=== PATIENT | male | born 1965 | race Caucasian/White ===

== ENCOUNTER → 2018-02-26 11:51 | Outpatient (CLI) | payer OTHER, MEDICAID, SELFPAY ==
[2018-02-26 12:25] LABS: Hemoglobin A1C% w Est Avg Glu 7.9 % (4.0-6.0)
[2018-02-26 12:34] LABS: Alanine Aminotransferase 34 IU/L (21-72); Albumin 4.1 g/dL (3.5-5.0); Albumin Globulin Ratio 1.4 (1.0-2.8); Alkaline Phosphatase 78 U/L (38-126); Aspartate Aminotransferase 19 IU/L (17-59); Bilirubin Total 0.4 mg/dL (0.2-1.3); Blood Urea Nitrogen 27 mg/dL (9-20); Calcium 10.2 mg/dL (8.4-10.2); Carbon Dioxide 18 mmol/L (22-32); Chloride 110 mmol/L (98-107); Cholesterol 176 mg/dL (140-199); Estimated Glomerular Filt Rate > 60.0 mL/min (>60); Glucose 194 mg/dL (70-100); HDL Cholesterol 29 mg/dL (40-60); HEMOLYSIS 17 (0-50); Potassium 4.5 mmol/L (3.4-5.1); Sodium 143 mmol/L (137-145); Total Protein 7.1 g/dL (6.3-8.2)
[2018-02-26 12:44] LABS: Triglycerides 690 mg/dL (35-150)
[2018-02-26 17:39] LABS: Creatinine Urine Random 119.8 mg/dL
[2018-02-26 18:03] LABS: Microalbumi Creatinin Ratio Ur 171.9 ug/mg CR (<30); Microalbumin Urine Random 20.6 mg/dL (0-1.6)
== END ==
PROVIDERS: PCP Physician Assistant; Visit Provider Physician Assistant
DX: E11.65 Type 2 diabetes mellitus with hyperglycemia (principal); E78.5 Hyperlipidemia, unspecified
CPT/HCPCS: 36415; 80053; 80061; 82043; 82570; 83036

== ENCOUNTER → 2018-03-12 11:04 | Outpatient (CLI) | payer OTHER, MEDICAID, SELFPAY ==
--- NOTE | 2018-03-12 11:13 | DI.CT.S_ITS ---
PROCEDURE: CT CHEST WO CON INDICATIONS: 6 month follow up on abnormal CT chest TECHNIQUE: Noncontrast 5 mm thick sections acquired from the pulmonary apices to the posterior costophrenic angles. 7 mm thick coronal and sagittal MIP reformats were then acquired. For radiation dose reduction, the following was used: automated exposure control, adjustment of mA and/or kV according to patient size. COMPARISON: [facility], CT, THORAX WITHOUT CONTRAST, 04/24/2017, 11:48. FINDINGS: Image quality: Excellent. Lungs and pleura: Diffuse, bilateral lung groundglass opacities with ill-defined upper lobe nodules are not significantly changed compared to 04/24/2017. No pleural effusions or pneumothorax. Central and peripheral airways are patent and normal in caliber. Mediastinum: Heart size is normal. No pericardial effusion. No mediastinal adenopathy by size criteria. Thoracic aorta and central pulmonary arteries are normal in size. Esophagus is normal in caliber. No hiatal hernia. Bones and chest wall: No suspicious bony lesions. No vertebral body compression fractures. Spine degenerative disc disease and facet arthropathy. No axillary or supraclavicular adenopathy by size criteria. Thyroid gland is within normal limits. Abdomen: A small hypoattenuating lesions are noted in the visualized spleen which are not significantly changed in appearance where visualized compared to the prior examination. Visualized upper abdominal solid organs and bowel loops otherwise appear normal in the absence of contrast. IMPRESSION: Stable examination compared to 04/24/17. Diffuse, bilateral small groundglass opacities and ill-defined upper lobe nodules demonstrate no significant change compared to prior examination. Differential diagnosis includes causes of infective bronchiolitis, hypersensitivity pneumonitis connective tissue disorders including rheumatoid arthritis and in the appropriate clinical setting respiratory bronchiolitis-ILD. High-resolution CT scan could be performed for further characterization of the opacities if clinically indicated. Dictated by: Mariela Paz MD, PhD on 03/12/2018 at 14:28 Approved by: Mariela Paz MD, PhD on 03/12/2018 at 14:38
== END ==
PROVIDERS: PCP Physician Assistant; Visit Provider Physician Assistant
DX: R93.89 Abnormal findings on diagnostic imaging of other specified body structures (principal)
CPT/HCPCS: 71250

== ENCOUNTER → 2018-03-31 14:59 | Outpatient (CLI) | payer OTHER, MEDICAID, SELFPAY ==
--- NOTE | 2018-03-31 15:00 | DI.US.S_ITS ---
PROCEDURE: US ABDOMEN COMPLETE INDICATIONS: 30+pack/yr smoker - possible mass LUQ TECHNIQUE: Real-time scanning was performed of the abdominal and retroperitoneal organs, with image documentation. COMPARISON: None. FINDINGS: Liver: The liver demonstrates normal size. The liver demonstrates generalized increased echogenicity. This decreases ultrasound sensitivity for detection of hepatic masses. Gallbladder: No findings of gallstones or sludge are seen. The gallbladder wall is not thickened, measuring 3 mm or less. No specific pericholecystic fluid is seen. The sonographic Guzman sign is negative. Biliary ducts: Intrahepatic bile ducts are non-dilated. Extrahepatic bile duct caliber measures 6 mm. Normal is 6-7 mm or less in diameter, or 10 mm or less post-cholecystectomy. Pancreas: Visualized portions of the pancreas are sonographically normal. Spleen: Spleen is normal in size and homogeneous in echotexture. Kidneys: Kidneys are normal in size and echotexture. Right kidney measures 10.9 cm long; left kidney measures 11.2 cm long. No hydronephrosis. A 7 mm stone can be seen involving the superior pole of the left kidney. No solid masses. The renal cortex measures within normal limits for thickness. Aorta: Visualized aorta is normal in caliber at less than 3 cm. Iliacs: Proximal common iliac arteries are normal in caliber at less than 2.5 cm. IVC: Intrahepatic inferior vena cava is patent. Miscellaneous: No free abdominal fluid. IMPRESSION: No masses or other process abnormalities can be seen to explain patient's clinical left upper quadrant fullness. If there is strong clinical concern for left upper quadrant mass, then please consider a dedicated CT with IV and oral contrast for further evaluation. Note is made of a 7 mm nonobstructing left kidney stone. The liver demonstrates increased echogenicity. This finding is nonspecific, yet it is most commonly attributed to fatty infiltration. Dictated by: Gio Solitario M.D. on 03/31/2018 at 15:47 Approved by: Gio Solitario M.D. on 03/31/2018 at 15:51
== END ==
PROVIDERS: PCP Physician Assistant; Visit Provider Physician Assistant
DX: Z13.6 Encounter for screening for cardiovascular disorders (principal); F17.200 Nicotine dependence, unspecified, uncomplicated; E11.65 Type 2 diabetes mellitus with hyperglycemia; R19.32 Left upper quadrant abdominal rigidity
CPT/HCPCS: 76700

== ENCOUNTER → 2018-07-02 11:49 | Outpatient (CLI) | payer OTHER, MEDICAID, SELFPAY ==
[2018-07-02 12:53] LABS: Hemoglobin A1C% w Est Avg Glu 8.8 % (4.0-6.0)
[2018-07-02 13:19] LABS: Prostate Specific Antigen Scrn 1.45 ng/mL (0.1-4.0)
== END ==
PROVIDERS: PCP Physician Assistant; Visit Provider Physician Assistant
DX: Z12.5 Encounter for screening for malignant neoplasm of prostate (principal); E11.65 Type 2 diabetes mellitus with hyperglycemia
CPT/HCPCS: 36415; 83036; G0103

== ENCOUNTER → 2018-10-18 08:16 | Outpatient (CLI) | payer OTHER, MEDICAID, SELFPAY ==
[2018-10-18 09:16] LABS: Creatinine Urine Random 68.3 mg/dL
[2018-10-18 09:19] LABS: Microalbumi Creatinin Ratio Ur 241.5 ug/mg CR (<30); Microalbumin Urine Random 16.5 mg/dL (0-1.6)
[2018-10-18 09:28] LABS: Hemoglobin A1C% w Est Avg Glu 8.4 % (4.0-6.0)
[2018-10-18 09:42] LABS: Alanine Aminotransferase 33 IU/L (21-72); Albumin 4.1 g/dL (3.5-5.0); Albumin Globulin Ratio 1.2 (1.0-2.8); Alkaline Phosphatase 82 U/L (38-126); Aspartate Aminotransferase 22 IU/L (17-59); Bilirubin Total 0.4 mg/dL (0.2-1.3); Blood Urea Nitrogen 31 mg/dL (9-20); Calcium 10.1 mg/dL (8.4-10.2); Carbon Dioxide 23 mmol/L (22-32); Chloride 105 mmol/L (98-107); Cholesterol 181 mg/dL (140-199); Estimated Glomerular Filt Rate > 60.0 mL/min (>60); Globulin 3.3 g/dL (1.7-4.1); Glucose 188 mg/dL (70-100); HDL Cholesterol 24 mg/dL (40-60); HEMOLYSIS < 15 (0-50); Potassium 4.3 mmol/L (3.4-5.1); Sodium 138 mmol/L (137-145); Total Protein 7.4 g/dL (6.3-8.2); Triglycerides 495 mg/dL (35-150)
== END ==
PROVIDERS: PCP Physician Assistant; Visit Provider Physician Assistant
DX: E11.65 Type 2 diabetes mellitus with hyperglycemia (principal); E78.5 Hyperlipidemia, unspecified
CPT/HCPCS: 36415; 80053; 80061; 82043; 82570; 83036

== ENCOUNTER → 2019-02-15 10:16 | Outpatient (CLI) | payer OTHER, MEDICAID, SELFPAY ==
[2019-02-15 10:57] LABS: Hemoglobin A1C% w Est Avg Glu 9.1 % (4.0-6.0)
[2019-02-15 11:22] LABS: BUN Creatinine Ratio 26.7 (6-22); Blood Urea Nitrogen 32 mg/dL (9-20); Calcium 10.4 mg/dL (8.4-10.2); Carbon Dioxide 23 mmol/L (22-32); Chloride 105 mmol/L (98-107); Estimated Glomerular Filt Rate > 60.0 mL/min (>60); Glucose 214 mg/dL (70-100); HEMOLYSIS < 15 (0-50); Potassium 4.8 mmol/L (3.4-5.1); Sodium 138 mmol/L (137-145)
[2019-02-15 11:40] LABS: Creatinine Urine Random 82.6 mg/dL
[2019-02-15 11:44] LABS: Microalbumi Creatinin Ratio Ur 146.4 ug/mg CR (<30); Microalbumin Urine Random 12.1 mg/dL (0-1.6)
== END ==
PROVIDERS: PCP Physician Assistant; Visit Provider Physician Assistant
DX: E11.65 Type 2 diabetes mellitus with hyperglycemia (principal); E78.5 Hyperlipidemia, unspecified; F17.200 Nicotine dependence, unspecified, uncomplicated
CPT/HCPCS: 36415; 80048; 82043; 82570; 83036

== ENCOUNTER → 2019-11-23 10:35 | Outpatient (CLI) | payer OTHER, MEDICAID, SELFPAY ==
[2019-11-23 11:45] LABS: Add Manual Diff / Slide Review NO; Basophils Absolute Auto 100 /uL (0-100); Basophils Percent Auto 0.5 % (0-2); Eosinophils Absolute Auto 300 /uL (0-450); Eosinophils Percent Auto 2.8 % (2-4); Hematocrit 45.4 % (41-53); Hemoglobin 15.4 g/dL (13.5-17.5); Lymphocytes Absolute Auto 4800 /uL (1100-4500); Mean Corpuscular HGB Conc 33.9 % (30-36); Mean Corpuscular Hemoglobin 29.5 PG (26-34); Monocytes Absolute Auto 900 /uL (0-900); Monocytes Percent Auto 7.7 % (3-14); Neutrophils Absolute Auto 6100 /uL (1500-7000); Platelet Count 333 X10^3/uL (150-400); Red Blood Cell Count 5.22 X10^6/uL (4.5-5.9); White Blood Cell Count 12.3 X10^3/uL (4.5-11.0)
[2019-11-23 12:59] LABS: TSH w/ Reflex to FT4 1.84 uIU/mL (0.47-4.68)
[2019-11-23 14:02] LABS: Alanine Aminotransferase 28 IU/L (<50); Albumin 4.1 g/dL (3.5-5.0); Albumin Globulin Ratio 1.4 (1.0-2.8); Alkaline Phosphatase 104 U/L (38-126); Aspartate Aminotransferase 22 IU/L (17-59); BUN Creatinine Ratio 24.7 (6-22); Bilirubin Total 0.6 mg/dL (0.2-1.3); Blood Urea Nitrogen 24 mg/dL (9-20); Calcium 10.5 mg/dL (8.4-10.2); Carbon Dioxide 20 mmol/L (22-32); Chloride 105 mmol/L (98-107); Cholesterol 213 mg/dL (140-199); Estimated Glomerular Filt Rate > 60.0 mL/min (>60); Glucose 353 mg/dL (70-100); HDL Cholesterol 28 mg/dL (40-60); HEMOLYSIS < 15 (0-50); Potassium 4.8 mmol/L (3.4-5.1); Sodium 135 mmol/L (137-145); Total Protein 7.1 g/dL (6.3-8.2)
[2019-11-23 14:25] LABS: Triglycerides 678 mg/dL (35-150)
[2019-11-23 16:30] LABS: Creatinine Urine Random 102.8 mg/dL
[2019-11-23 16:37] LABS: Microalbumi Creatinin Ratio Ur 125.4 ug/mg CR (<30); Microalbumin Urine Random 12.9 mg/dL (0-1.6)
== END ==
PROVIDERS: PCP Registered Nurse Diabetes Educator; Referring Provider Registered Nurse Diabetes Educator; Visit Provider Registered Nurse Diabetes Educator
DX: E11.65 Type 2 diabetes mellitus with hyperglycemia (principal)
CPT/HCPCS: 36415; 80053; 80061; 82043; 82570; 83036; 84443; 85025

== ENCOUNTER → 2020-04-10 10:26 | Outpatient (CLI) | payer OTHER, MEDICAID, SELFPAY ==
[2020-04-10 11:17] LABS: Add Manual Diff / Slide Review NO; Basophils Absolute Auto 100 /uL (0-100); Basophils Percent Auto 0.7 % (0-2); Eosinophils Absolute Auto 300 /uL (0-450); Eosinophils Percent Auto 2.2 % (2-4); Hematocrit 47.5 % (41-53); Hemoglobin 15.9 g/dL (13.5-17.5); Lymphocytes Absolute Auto 4600 /uL (1100-4500); Lymphocytes Percent Auto 38.2 % (25-40); Mean Corpuscular HGB Conc 33.4 % (30-36); Mean Corpuscular Hemoglobin 28.7 PG (26-34); Mean Corpuscular Volume 86.1 fL (80-100); Monocytes Absolute Auto 1000 /uL (0-900); Monocytes Percent Auto 8.3 % (3-14); Neutrophils Absolute Auto 6100 /uL (1500-7000); Neutrophils Percent Auto 50.6 % (50-75); Platelet Count 311 X10^3/uL (150-400); Red Blood Cell Count 5.52 X10^6/uL (4.5-5.9); Red Cell Distribution Width 13.1 % (11.6-14.8); White Blood Cell Count 12.1 X10^3/uL (4.5-11.0)
[2020-04-10 11:25] LABS: Hemoglobin A1C% w Est Avg Glu 12.6 % (4.0-6.0)
[2020-04-10 11:45] LABS: Creatinine Urine Random 94.1 mg/dL
[2020-04-10 11:47] LABS: Alanine Aminotransferase 25 IU/L (<50); Albumin Globulin Ratio 1.2 (1.0-2.8); Alkaline Phosphatase 98 U/L (38-126); Aspartate Aminotransferase 17 IU/L (17-59); BUN Creatinine Ratio 30.8 (6-22); Bilirubin Total 0.7 mg/dL (0.2-1.3); Blood Urea Nitrogen 32 mg/dL (9-20); Calcium 10.2 mg/dL (8.4-10.2); Carbon Dioxide 20 mmol/L (22-32); Chloride 106 mmol/L (98-107); Cholesterol 224 mg/dL (140-199); Estimated Glomerular Filt Rate > 60.0 mL/min (>60); Globulin 3.3 g/dL (1.7-4.1); Glucose 343 mg/dL (70-100); HDL Cholesterol 30 mg/dL (40-60); HEMOLYSIS < 15 (0-50); Potassium 4.4 mmol/L (3.4-5.1); Sodium 135 mmol/L (137-145); Total Protein 7.3 g/dL (6.3-8.2)
[2020-04-10 12:37] LABS: Triglycerides 589 mg/dL (35-150)
[2020-04-10 12:50] LABS: Microalbumi Creatinin Ratio Ur 456.9 ug/mg CR (<30)
== END ==
PROVIDERS: PCP Registered Nurse Diabetes Educator; Referring Provider Registered Nurse Diabetes Educator; Visit Provider Registered Nurse Diabetes Educator
DX: E11.65 Type 2 diabetes mellitus with hyperglycemia (principal); E78.5 Hyperlipidemia, unspecified
CPT/HCPCS: 36415; 80053; 80061; 82043; 82570; 83036; 85025

== ENCOUNTER → 2020-05-21 12:52 | Oncology outpatient (ONC) | payer OTHER, MEDICAID, SELFPAY ==
[2020-05-21 12:07] VITALS: BP 115/70; PULSE 104; RESP 16; TEMP 31.2; O2SAT 96
--- NOTE | 2020-05-21 12:23 | ONC.CONS ---
History of Present Illness - Data of Consult Patient: new to practice Consult date: 05/21/20 Requesting Physician: PAULINE Cash Primary Care Provider: PAULINE Cash - Consult Narrative Reason for consult: Leukocytosis Narrative: David Sainz is a 55 year old male with medical problems most notable for type 2 diabetes. Clinically, he said he is worn out more easily, and sleep a lot. He has good appetite. He lost from about 400 lbs in 2016 to 196 lbs. He has asthma, and does not really affect him. He denies any chest pain. No nausea or vomiting. No abdominal pain. No tingling or numbing of hands and feet. He has not been aware of increased WBC until recently. But upon reviewing of the available medical records in [facility], patient apparently was found to have an slightly elevated total white blood cell count on 06/04/2000 with WBC 11.9. After that, monitoring of the white blood cell count has shown gradually mildly elevated total white blood cell count but rather stable. On 04/10/2020, WBC 12.1, hemoglobin 15.9, hematocrit 47.5, platelets 311. Absolute lymphocyte count 4600. CC: Radha Hernandez MD Home Medications and Allergies Home Medications Medication Instructions Recorded Confirmed Type Pen [employer] #100 each 03/26/18 04/18/20 Rx Syringes: 1cc Insulin Syringes #180 each 09/15/18 04/18/20 Rx with [employer] fenofibrate 160 mg tablet 160 mg PO QDAY #60 tab 10/20/18 04/18/20 Rx Unifine Pentips Plus Misc. #200 each 08/15/19 04/18/20 Rx [Lancets] #100 each 11/25/19 04/18/20 Rx [Test Strips] #100 each 11/25/19 04/18/20 Rx bupropion HCl 150 mg tablet,12 hr 150 mg PO DAILY #60 ea 04/18/20 04/18/20 Rx sustained-release fluticasone propionate 50 2 spray INTRANASAL DAILY #9.9 ml 04/18/20 04/18/20 Rx mcg/actuation nasal spray,suspension metformin 500 mg tablet,extended 1,000 mg PO PM #120 tab 04/18/20 04/18/20 Rx release 24 hr exenatide microspheres 2 mg/0.65 2 mg SUBCUT QWEEK #4 ea 05/11/20 05/11/20 Rx mL subcutaneous pen injector Allergies Allergy/AdvReac Type Severity Reaction Status Date / Time No Known Drug Allergies Allergy Verified 04/18/20 13:02 Medical History - Medical, Surgical, Family History Medical History: Medical History (Last Updated 04/20/20 @ 15:28 by PAULINE Cash) Asthma COPD (chronic obstructive pulmonary disease) Diabetes mellitus type 2, insulin dependent Onset Date: 2010 History of incision and drainage Onset Date: 07/25/15 Hyperlipidemia Onset Date: 07/19/12 Hypertension Leukocytosis Poor compliance with medication Recurrent boils Renal insufficiency Onset Date: 04/04/14 RLS (restless legs syndrome) Family History: Family History (Last Updated 05/21/20 @ 12:35 by Radha Hernandez MD) Father Respiratory failure Smoker Mother No problems noted. Brother Colon cancer Sister Type 1 diabetes Down syndrome Sister No problems noted. Sister No problems noted. - Social History Smoking Status: Current every day smoker (1/2 - 1 pack per day. Gave patient a smoking cessation handout.) Substance Use Type: marijuana (once in a while) Alcohol Intake: former (stopped 1990, use to drinkly badly.) Review of Systems - Patient Self-Reported Symptoms SR eye issues: Vision changes SR respiratory issues: Shortness of breath, Mucous SR Neuro issues: Headache All systems PM: reviewed and no additional remarkable complaints except as stated Exam Vital signs: Vital Signs Temp Pulse Resp BP Pulse Ox 05/21/20 12:07 88.2 F L 104 H 16 115/70 96 Intake and Output 05/20/20 05/21/20 05/21/20 23:59 07:59 15:59 Other: Weight 2 kg Patient Weight 05/21/20 23:59 Weight 2 kg Narrative: ECOG 1 Vitals above reviewed Constitutional: well developed, and well nourished, and well groomed, not in any acute respiratory distress, pleasant and cooperative. HEENT: NCAT, EOMI, PERRLA. Anicteric sclera. Neck: Supple and symmetrical, no palpable masses. No palpable thyromegaly. Respiratory: No use of accessory muscles. CTAB, no wheezes. Cardiovascular: RRR, S1 and S2 normal, no M/G/R. No edema of lower extremities. Abdomen: Soft, NTND, no palpable masses. No palpable hepatosplenomegaly. No hernia. Lymphatic: no palpable palpable lymph nodes in the neck, or axillae Musculoskeletal: normal gait and station Skin: No rashes, lesions, or ulcers. No induration, or subcutaneous nodules. Neurological: AOx3.CN II-XII grossly intact. No focal motor or sensory deficit. Psychiatric: Normal mood and affect. Results - Labs Pending Assessment and Plan (1) Lymphocytosis 55-year-old gentleman with medical comorbidities notable for diabetes was referred to our clinic for evaluation of mildly persistent leukocytosis and absolute lymphocytosis. Clinically patient does not have any fever, chills or night sweats. On my physical examination, I did not appreciate any lymphadenopathy or hepato splenomegaly. The lymphocytosis has been present since as early as May 2000. 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 Given that the lymphocytosis is less than 5000, it is unlikely we should designated his disease as chronic lymphocytic leukemia. I explained to the patient that I will obtain blood samples for flow cytometry and will have him come back in 4 weeks for follow-up of the results. Plan: CBC, CMP, Flowcytometry RTC in 4 weeks
[2020-05-21 13:09] LABS: Add Manual Diff / Slide Review NO; Basophils Absolute Auto 200 /uL (0-100); Basophils Percent Auto 1.2 % (0-2); Eosinophils Absolute Auto 200 /uL (0-450); Eosinophils Percent Auto 1.8 % (2-4); Hematocrit 49.9 % (41-53); Hemoglobin 16.6 g/dL (13.5-17.5); Lymphocytes Absolute Auto 4800 /uL (1100-4500); Lymphocytes Percent Auto 35.8 % (25-40); Mean Corpuscular HGB Conc 33.3 % (30-36); Mean Corpuscular Hemoglobin 28.5 PG (26-34); Mean Corpuscular Volume 85.5 fL (80-100); Monocytes Absolute Auto 1000 /uL (0-900); Monocytes Percent Auto 7.5 % (3-14); Neutrophils Absolute Auto 7200 /uL (1500-7000); Neutrophils Percent Auto 53.7 % (50-75); Platelet Count 319 X10^3/uL (150-400); Red Blood Cell Count 5.83 X10^6/uL (4.5-5.9); Red Cell Distribution Width 13.1 % (11.6-14.8); White Blood Cell Count 13.4 X10^3/uL (4.5-11.0)
[2020-05-21 13:27] LABS: Alanine Aminotransferase 31 IU/L (<50); Albumin 4.4 g/dL (3.5-5.0); Albumin Globulin Ratio 1.3 (1.0-2.8); Alkaline Phosphatase 104 U/L (38-126); Aspartate Aminotransferase 22 IU/L (17-59); Bilirubin Total 0.6 mg/dL (0.2-1.3); Blood Urea Nitrogen 31 mg/dL (9-20); Calcium 10.2 mg/dL (8.4-10.2); Carbon Dioxide 22 mmol/L (22-32); Chloride 105 mmol/L (98-107); Estimated Glomerular Filt Rate > 60.0 mL/min (>60); Globulin 3.4 g/dL (1.7-4.1); Glucose 312 mg/dL (70-100); HEMOLYSIS < 15 (0-50); Potassium 4.6 mmol/L (3.4-5.1); Sodium 135 mmol/L (137-145); Total Protein 7.8 g/dL (6.3-8.2)
== END ==
PROVIDERS: PCP Registered Nurse Diabetes Educator; Referring Provider Registered Nurse Diabetes Educator; Visit Provider Internal Medicine Hematology & Oncology
DX: D72.829 Elevated white blood cell count, unspecified (principal); E11.9 Type 2 diabetes mellitus without complications; I10 Essential (primary) hypertension; E78.5 Hyperlipidemia, unspecified; J44.9 Chronic obstructive pulmonary disease, unspecified; N28.9 Disorder of kidney and ureter, unspecified; G25.81 Restless legs syndrome; F17.210 Nicotine dependence, cigarettes, uncomplicated; Z79.4 Long term (current) use of insulin
CPT/HCPCS: 80053; 85025; 99204; 99214

== ENCOUNTER → 2022-06-30 11:10 | Outpatient (CLI) | payer OTHER, MEDICAID, SELFPAY ==
[2022-06-30 12:19] LABS: Hematocrit 45.7 % (41-53); Hemoglobin 15.4 g/dL (13.5-17.5); Mean Corpuscular HGB Conc 33.7 % (30-36); Platelet Count 310 X10^3/uL (150-400); Red Blood Cell Count 5.32 X10^6/uL (4.5-5.9); Red Cell Distribution Width 13.6 % (11.6-14.8); White Blood Cell Count 12.3 X10^3/uL (4.5-11.0)
[2022-06-30 12:51] LABS: Alanine Aminotransferase 27 IU/L (<50); Albumin 3.9 g/dL (3.5-5.0); Albumin Globulin Ratio 1.1 (1.0-2.8); Alkaline Phosphatase 114 U/L (38-126); Aspartate Aminotransferase 19 IU/L (17-59); BUN Creatinine Ratio 27.9 (6-22); Bilirubin Total 0.6 mg/dL (0.2-1.3); Blood Urea Nitrogen 29 mg/dL (9-20); Calcium 9.2 mg/dL (8.4-10.2); Carbon Dioxide 19 mmol/L (22-32); Chloride 104 mmol/L (98-107); Cholesterol 239 mg/dL (140-199); Estimated Glomerular Filt Rate > 60 mL/min (>60); Globulin 3.6 g/dL (1.7-4.1); Glucose 333 mg/dL (70-100); HDL Cholesterol 25 mg/dL (40-60); HEMOLYSIS < 15 (0-50); Potassium 4.3 mmol/L (3.4-5.1); Sodium 134 mmol/L (137-145); Total Protein 7.5 g/dL (6.3-8.2)
[2022-06-30 12:59] LABS: Triglycerides 909 mg/dL (35-150)
[2022-06-30 13:06] LABS: Hemoglobin A1C% w Est Avg Glu 12.5 % (4.0-6.0)
[2022-06-30 13:18] LABS: TSH w/ Reflex to FT4 1.82 uIU/mL (0.47-4.68)
[2022-07-02 16:15] LABS: Microalbumin Urine Random 75.1 mg/dL (0-1.6)
[2022-07-02 17:12] LABS: Creatinine Urine Random 79.4 mg/dL; Microalbumi Creatinin Ratio Ur 945.8 ug/mg CR (<30)
== END ==
PROVIDERS: PCP Registered Nurse Diabetes Educator; Referring Provider Registered Nurse Diabetes Educator; Visit Provider Registered Nurse Diabetes Educator
DX: E11.65 Type 2 diabetes mellitus with hyperglycemia (principal); E78.5 Hyperlipidemia, unspecified
CPT/HCPCS: 36415; 80053; 80061; 82043; 82570; 83036; 84443; 85027

== ENCOUNTER → 2022-07-29 14:57 | Outpatient (CLI) | payer OTHER, MEDICAID, SELFPAY ==
--- NOTE | 2022-07-29 14:58 | DI.US.S_ITS ---
PROCEDURE: US SOFT TISSUE HEAD AND NECK INDICATIONS: RIGHT NECK LUMP TECHNIQUE: Real-time scanning was performed of the neck region of interest, with image documentation. COMPARISON: None. FINDINGS: No mass, fluid collection or lymphadenopathy seen in the region of interest involving the palpable right neck mass. IMPRESSION: No sonographic abnormality involving the palpable abnormality of the right neck. If there is continued clinical concern for mass, consider CT or MRI for further assessment. Dictated by: Dionisio GAITAN Interpreted: Arden Stack MD on 07/29/2022 at 16:15 Transcribed by: AUDIE on 07/29/2022 at 16:16 Approved by: Arden Stack M.D. on 08/04/2022 at 10:41
--- NOTE | 2022-07-29 14:58 | DI.US.S_ITS ---
PROCEDURE: US EXTREMITY NONVASC UPPER LT INDICATIONS: LEFT ANTERIOR ELBOW LUMP TECHNIQUE: Real-time scanning was performed of the left cubital fossa , with image documentation. COMPARISON: None. FINDINGS: There is no soft tissue abnormality or mass visualized within the left cubital fossa in the area of interest. IMPRESSION: No sonographic abnormality in the area palpated by the patient. Dictated by: Pearl Mcbride M.D. on 07/29/2022 at 16:39 Approved by: Pearl Mcbride M.D. on 07/29/2022 at 16:42
== END ==
PROVIDERS: PCP Registered Nurse Diabetes Educator; Referring Provider Registered Nurse Diabetes Educator; Visit Provider Registered Nurse Diabetes Educator
DX: R22.32 Localized swelling, mass and lump, left upper limb (principal); R22.1 Localized swelling, mass and lump, neck
CPT/HCPCS: 76536; 76882

== ENCOUNTER → 2023-07-16 14:50 | Outpatient (CLI) | payer OTHER, MEDICAID, SELFPAY ==
[2023-07-16 15:36] LABS: Hematocrit 43.6 % (41-53); Hemoglobin 14.8 g/dL (13.5-17.5); Mean Corpuscular HGB Conc 33.9 % (30-36); Mean Corpuscular Hemoglobin 28.6 PG (26-34); Mean Corpuscular Volume 84.4 fL (80-100); Platelet Count 291 X10^3/uL (150-400); Red Blood Cell Count 5.16 X10^6/uL (4.5-5.9); Red Cell Distribution Width 13.5 % (11.6-14.8); White Blood Cell Count 13.4 X10^3/uL (4.5-11.0)
[2023-07-16 16:05] LABS: Neutrophils Absolute Manual 7370 /uL (3000-5900); Total Cells Counted 100
[2023-07-16 16:06] LABS: RBC Morphology Normal Morphology
[2023-07-16 16:23] LABS: Alanine Aminotransferase 24 IU/L (<50); Albumin 3.8 g/dL (3.5-5.0); Albumin Globulin Ratio 1.1 (1.0-2.8); Alkaline Phosphatase 98 U/L (38-126); Aspartate Aminotransferase 20 IU/L (17-59); BUN Creatinine Ratio 22.4 (6-22); Bilirubin Total 0.8 mg/dL (0.2-1.3); Blood Urea Nitrogen 24 mg/dL (9-20); Calcium 9.2 mg/dL (8.4-10.2); Carbon Dioxide 20 mmol/L (22-32); Chloride 107 mmol/L (98-107); Cholesterol 193 mg/dL (140-199); Estimated Glomerular Filt Rate > 60 mL/min (>60); Globulin 3.5 g/dL (1.7-4.1); Glucose 255 mg/dL (70-100); HDL Cholesterol 28 mg/dL (40-60); HEMOLYSIS < 15 (0-50); LDL Cholesterol Calculated 103 mg/dL (<100); Sodium 135 mmol/L (137-145); Total Protein 7.3 g/dL (6.3-8.2); Triglycerides 309 mg/dL (35-150)
[2023-07-16 16:32] LABS: Hemoglobin A1C% w Est Avg Glu 11.4 % (4.0-6.0)
[2023-07-16 16:42] LABS: Creatinine Urine Random 174.7 mg/dL
[2023-07-16 16:54] LABS: TSH w/ Reflex to FT4 1.57 uIU/mL (0.47-4.68)
[2023-07-16 21:07] LABS: Microalbumi Creatinin Ratio Ur 5781.3 ug/mg CR (<30)
== END ==
PROVIDERS: PCP Registered Nurse Diabetes Educator; Referring Provider Registered Nurse Diabetes Educator; Visit Provider Registered Nurse Diabetes Educator
DX: D72.820 Lymphocytosis (symptomatic) (principal); E11.65 Type 2 diabetes mellitus with hyperglycemia; D72.829 Elevated white blood cell count, unspecified; E78.5 Hyperlipidemia, unspecified
CPT/HCPCS: 36415; 80053; 80061; 82043; 82570; 83036; 84443; 85025

== ENCOUNTER → 2023-07-23 10:10 | Outpatient (CLI) | payer OTHER, MEDICAID, SELFPAY ==
--- NOTE | 2023-07-23 10:11 | DI.RAD.S_ITS ---
PROCEDURE: FL UPPER GI SMALL BOWEL INDICATIONS: Early satiety; vomiting suspect gastroparesis COMPARISON: None. FINDINGS: KUB: No suspicious abdominal calcifications. Visualized solid organ contours appear normal in size. No suspicious bony abnormalities. Somewhat prominent stool in the colon. (Patient reports bowel movement once every 7-10 days). Esophagus: Air-contrast views demonstrate a normal mucosal pattern. On single-contrast views, there is normal peristalsis. No fixed strictures, extrinsic mass effects, or diverticula. No hiatal hernias or elicited gastroesophageal reflux. Mild delay in transit of a calibrated barium tablet through the esophagus. Stomach: The gastric lumen is normally distensible, and has normal rugal fold thickness. No mucosal masses or ulcers. The pylorus and duodenal bulb have a normal morphology. Small bowel: There is delayed transit time of barium through the stomach. No contrast is seen entering at the proximal duodenum at the end of the active exam 10 minutes. At 30 minutes contrast is seen in the proximal small bowel. At 90 minutes contrast has reached the distal small bowel. At 2 hours contrast is similarly in the distal small bowel. This is consistent with slow transit through the small bowel. Duodenal and small bowel loops appear normal in caliber throughout. No strictures, intraluminal masses, or extrinsic mass effects identified. IMPRESSION: No esophageal dysmotility demonstrated. No gastroesophageal reflux. No hiatal hernia. Minimal delay of the barium tablet through the gastroesophageal junction. Delay of the passage of contrast into the duodenum. This suggest gastroparesis. Additionally, there is slow transit of contrast through the small bowel. Large volume of stool in the colon. Dictated by: Ace Pearson M.D. on 07/23/2023 at 16:37 Approved by: Ace Pearson M.D. on 07/23/2023 at 16:44
== END ==
LOC: RAD 10:11
PROVIDERS: PCP Registered Nurse Diabetes Educator; Referring Provider Physician Assistant; Visit Provider Physician Assistant
DX: E11.43 Type 2 diabetes mellitus with diabetic autonomic (poly)neuropathy (principal); K31.84 Gastroparesis
CPT/HCPCS: 74240; 74248

== ENCOUNTER 2023-08-08 09:35 | Emergency (ER) | payer OTHER, MEDICAID, SELFPAY ==
[2023-08-08] VITALS (11 sets, daily range): BP systolic 109–149; BP diastolic 68–84; PULSE 78–128; RESP 14–20; TEMP 36.7; O2SAT 95–99; BMI 27.2
[2023-08-08 10:03] LABS: Add Manual Diff / Slide Review NO; Basophils Absolute Auto 100 /uL (0-100); Basophils Percent Auto 1.2 % (0-2); Eosinophils Absolute Auto 200 /uL (0-450); Eosinophils Percent Auto 2.1 % (2-4); Hematocrit 45.6 % (41-53); Hemoglobin 15.5 g/dL (13.5-17.5); Lymphocytes Absolute Auto 4100 /uL (1100-4500); Mean Corpuscular Hemoglobin 28.9 PG (26-34); Mean Corpuscular Volume 84.9 fL (80-100); Monocytes Absolute Auto 900 /uL (0-900); Neutrophils Absolute Auto 6200 /uL (1500-7000); Neutrophils Percent Auto 53.7 % (50-75); Platelet Count 345 X10^3/uL (150-400); Red Blood Cell Count 5.37 X10^6/uL (4.5-5.9); Red Cell Distribution Width 13.4 % (11.6-14.8); White Blood Cell Count 11.6 X10^3/uL (4.5-11.0)
[2023-08-08 10:14] LABS: Alanine Aminotransferase 22 IU/L (<50); Albumin 3.9 g/dL (3.5-5.0); Albumin Globulin Ratio 1.1 (1.0-2.8); Alkaline Phosphatase 79 U/L (38-126); Aspartate Aminotransferase 22 IU/L (17-59); BUN Creatinine Ratio 17.6 (6-22); Blood Urea Nitrogen 21 mg/dL (9-20); Calcium 10.9 mg/dL (8.4-10.2); Carbon Dioxide 22 mmol/L (22-32); Chloride 103 mmol/L (98-107); Estimated Glomerular Filt Rate > 60 mL/min (>60); Globulin 3.4 g/dL (1.7-4.1); Glucose 214 mg/dL (70-100); HEMOLYSIS 16 (0-50); Lipase 55 U/L (23-300); Potassium 4.1 mmol/L (3.4-5.1); Sodium 134 mmol/L (137-145); Total Protein 7.3 g/dL (6.3-8.2)
--- NOTE | 2023-08-08 11:30 | ED.ABDPAIN ---
HPI - Abdominal Pain General Chief Complaint: Abdominal Pain Stated Complaint: sent by PCP/ sick last 6 weeks Time Seen by Provider: 08/08/23 10:32 Source: patient Mode of arrival: Ambulatory History of Present Illness HPI narrative: 58-year-old male with periumbilical abdominal pain for weeks. No acute symptoms of vomiting or fevers, his abdomen is nontender. Reportedly had improved symptoms in the past with treatment to suppress stomach acid secretion. No prior abdominal surgeries. He says he had an upper GI endoscopy recently and has been referred to [facility], he does not know what the results of his endoscopy were nor can I locate a report of a recent endoscopy in the records here. He says that his primary care office told him to come to the emergency department because of his ongoing symptoms. He is able to eat and drink normally. He was started on semaglutide about 2 weeks ago, his symptoms preceded this. Related Data Previous Rx's Medication Instructions Recorded [Lancets] #100 ea 07/08/22 [Test Strips] #100 ea 07/08/22 metformin 500 mg tablet,extended 1,000 mg (2 x 500 mg) PO BID #360 07/08/22 release 24 hr tabs Pen [place] #100 ea 07/16/23 insulin glargine 100 unit/mL (3 22 unit (0.22 mL) SUBCUT QPM #15 mL 07/16/23 mL) subcutaneous pen (Lantus Solostar U-100 Insulin) semaglutide 0.25 mg or 0.5 mg (2 0.25 mg (0.368 mL) SUBCUT QWEEK #3 07/16/23 mg/3 mL) subcutaneous pen injector mL omeprazole 20 mg capsule,delayed 20 mg PO DAILY #30 caps 08/08/23 release Allergies Allergy/AdvReac Type Severity Reaction Status Date / Time insulin glargine AdvReac Mild Muscle Pain Verified 08/08/23 09:43 [From Yaneth Sutherland U-100 Insulin] Patient History Medical History Asthma COPD (chronic obstructive pulmonary disease) Diabetes mellitus type 2, insulin dependent (2010) Dyslipidemia History of incision and drainage (07/25/15) Hyperlipidemia (07/19/12) Hypertension Leukocytosis Poor compliance with medication Recurrent boils Renal insufficiency (04/04/14) RLS (restless legs syndrome) Family History Father Respiratory failure Smoker Mother No problems noted. Brother Colon cancer Sister Type 1 diabetes Down syndrome Sister No problems noted. Sister No problems noted. Social History Smoking Status: Current every day smoker Tobacco: How many years used: 24 quit status: not considering quitting second hand exposure: Yes (everybody in my family smokes. ) alcohol intake: former (stopped 1990, use to drinkly badly. ) substance use type: marijuana (once in a while) Smoking Status: Current every day smoker tobacco type: cigarettes alcohol intake frequency: 0-2 drinks per day Substance Use Type: marijuana Exam Narrative Exam Narrative: Alert, no acute distress HEENT: Normocephalic, atraumaitic moist mucus membranes Neck: Supple no midline tenderness Lungs: Clear to ascultaion, no respiratory distress Heart: Regular rhythm and rate no murmur Abdomen: Normal bowel sounds, soft and nontender Extremeties: Full range of motion no deformity Neuro: Alert and oriented, normal speech moves x4 He was noted to be tachycardic on arrival, heart rate was normal on my exam Initial Vital Signs Initial Vital Signs: Vital Signs Temperature 98.1 F 08/08/23 09:38 Pulse Rate 128 H 08/08/23 09:38 Respiratory Rate 14 08/08/23 09:38 Blood Pressure 149/68 H 08/08/23 09:38 Pulse Oximetry 99 08/08/23 09:38 Oxygen Delivery Method Room Air 08/08/23 09:38 Course Orders Ordered: ED Orders 08/08/23 09:51 Complete Blood Count AUTO DIFF Stat Comprehensive Metabolic Panel Stat Lipase Stat 08/08/23 10:05 EKG-12 Lead Stat 08/08/23 12:31 Urine Microscopic Stat Ondansetron HCl (Ondansetron 4 Mg Odt) 4 mg PO NOW PRN PRN Reason: Nausea And Vomiting Ondansetron HCl (Ondansetron 4 Mg/2 Ml Inj) 4 mg IV NOW PRN PRN Reason: Nausea And Vomiting Vital Signs Vital signs: Vital Signs - 8 hr 08/08/23 09:38 08/08/23 09:46 08/08/23 09:47 Temperature 98.1 F Pulse Rate 128 H 114 H 114 H Respiratory Rate 14 20 18 Blood Pressure 149/68 H Pulse Oximetry 99 97 Oxygen Delivery Method Room Air Room Air 08/08/23 09:47 08/08/23 10:00 08/08/23 10:00 Temperature Pulse Rate 104 H Respiratory Rate 20 Blood Pressure 123/84 116/83 Pulse Oximetry 97 Oxygen Delivery Method 08/08/23 10:30 08/08/23 10:30 08/08/23 11:00 Temperature Pulse Rate 96 H Respiratory Rate 19 Blood Pressure 117/76 111/80 Pulse Oximetry 96 Oxygen Delivery Method 08/08/23 11:00 08/08/23 11:30 08/08/23 11:30 Temperature Pulse Rate 95 H 91 H Respiratory Rate 18 Blood Pressure 115/72 Pulse Oximetry 95 95 Oxygen Delivery Method 08/08/23 12:00 08/08/23 12:00 Temperature Pulse Rate 90 Respiratory Rate 20 Blood Pressure 125/79 Pulse Oximetry Oxygen Delivery Method MDM - Abdominal Pain Lab Data Lab results narrative: CBC with diff is unremarkable, CMP glucose is 214, creatinine is 1.1, CMP is otherwise unremarkable 08/08/23 09:51 08/08/23 09:51 Labs: Lab Results 08/08/23 08/08/23 Range/Units 09:51 12:31 WBC 11.6 H (4.5-11.0) X10^3/uL RBC 5.37 (4.5-5.9) X10^6/uL Hgb 15.5 (13.5-17.5) g/dL Hct 45.6 (41-53) % MCV 84.9 (80-100) fL MCH 28.9 (26-34) PG MCHC 34.0 (30-36) % RDW 13.4 (11.6-14.8) % Plt Count 345 (150-400) X10^3/uL Neut % (Auto) 53.7 (50-75) % Lymph % (Auto) 35.0 (25-40) % [place] % (Auto) 8.0 (3-14) % Eos % (Auto) 2.1 (2-4) % Baso % (Auto) 1.2 (0-2) % Neut # (Auto) 6200 (5053-5468) /uL Lymph # (Auto) 4100 (1102-4651) /uL [place] # (Auto) 900 (0-900) /uL Eos # (Auto) 200 (0-450) /uL Baso # (Auto) 100 (0-100) /uL Sodium 134 L (137-145) mmol/L Potassium 4.1 (3.4-5.1) mmol/L Chloride 103 (98-107) mmol/L Carbon Dioxide 22 (22-32) mmol/L BUN 21 H (9-20) mg/dL Creatinine 1.19 (0.66-1.25) mg/dL Estimated GFR > 60 (>60) mL/min BUN/Creatinine Ratio 17.6 (6-22) Glucose 214 H (70-100) mg/dL Calcium 10.9 H (8.4-10.2) mg/dL Total Bilirubin 1.0 (0.2-1.3) mg/dL AST 22 (17-59) IU/L ALT 22 (<50) IU/L Alkaline Phosphatase 79 (38-126) U/L Total Protein 7.3 (6.3-8.2) g/dL Albumin 3.9 (3.5-5.0) g/dL Globulin 3.4 (1.7-4.1) g/dL Albumin/Globulin Ratio 1.1 (1.0-2.8) Lipase 55 (23-300) U/L Urine RBC 0-1/hpf (0-5/HPF) Urine WBC 1-5/hpf (0-5/HPF) Ur Squamous Epith Cells 0-1 /hpf (0-5/HPF) Urine Bacteria Few (2-10) H (None) Hyaline Casts 1-5/lpf (None) Ur Culture Indicated? Cult not indicated Vol Urine Centrifuged 10ml (spun) Point of care testing: Point of Care Testing Glucose POC 203 Urine Dip Bedside Urine Glucose Negative Bedside Urine Bilirubin - Negative Bedside Urine Ketone +/- 5 Urine Specific [place] 1.02 Bedside Urine Occult Blood + Bedside Urine pH 5.5 Bedside Urine Protein +++ 300 Bedside Urine Urobilinogen - Negative Bedside Urine Nitrite - Negative Bedside Urine Leukocytes - Negative Esterase MDM Narrative Medical decision making narrative: 58-year-old male with weeks of periumbilical abdominal pain not associated with fevers vomiting evidence of blood loss or other acute findings. Considered but do not suspect pancreatitis, bowel obstruction, appendicitis diverticulitis urinary tract infection or ureteral stone. This may be related to excessive acid secretion, at this point given his very benign examination I do not think that imaging is indicated. I am going to try an empiric course of Protonix. Recommend he follow up with his primary care provider and see GI as planned. Discharge Plan Departure Patient Disposition: Home Clinical Impression: Abdominal pain Qualifiers: Abdominal location: periumbilical Qualified Code(s): R10.33 - Periumbilical pain Activity Restrictions/Additional Instructions: Emergency department evaluation today is reassuring. I have provided a prescription for omeprazole that I am helping will help control your symptoms. This medication decrease stomach acid secretion. Continue your other previous home medications. Follow up soon with her primary care provider. If you are having fevers, increasing abdominal pain uncontrolled vomiting vomiting blood or passing bloody or black tarry stool recheck in the emergency department. Prescriptions: New omeprazole 20 mg capsule,delayed release(DR/EC) 20 mg PO DAILY Qty: 30 0RF No Action metformin 500 mg tablet extended release 24 hr 1,000 mg PO BID Qty: 360 1RF (DME) [Lancets] See Rx Instructions .Route .MEDSUPPLY Qty: 100 3RF Rx Instructions: check blood sugar three times a day (DME) [Test Strips] See Rx Instructions .Route .MEDSUPPLY Qty: 100 3RF Rx Instructions: check blood sugar three times a day semaglutide 0.25 mg or 0.5 mg (2 mg/3 mL) pen injector 0.25 mg SUBCUT QWEEK Qty: 3 1RF Rx Instructions: 0.25mg weekly for 4 weeks; then 0.5mg weekly for 4 weeks insulin glargine [Lantus Solostar U-100 Insulin] 100 unit/mL (3 mL) insulin pen 22 unit SUBCUT QPM Qty: 15 3RF (DME) Pen Mcclave 12.7 mm 0 .Route .MEDSUPPLY Qty: 100 6RF Dose Instruction: As directed Rx Instructions: As directed, to be used once daily & once weekly for a total of 8 pen needles per week B-D Pen Needle 12.7 mm Original BD Referrals: Red Phelps ARNP [Primary Care Provider] - Stand Alone Forms: Patient Portal/API
--- NOTE | 2023-08-08 12:28 | PC.NURSE ---
Addendum entered by Ghada Dominguez R.N. 08/08/23 12:28: Recent continuous NSAID use. Original Note: Reports N/V/D x2 days. States she was worried about food poisoning. Endorses black stools.
[2023-08-08 12:42] LABS: Bacteria Urine Few (2-10); Culture Indicated Urine Cult Not Indicated; Hyaline Casts Urine 1-5/LPF; RBC Urine 0-1/HPF (0-5/HPF); Squamous Epithelial Cell Urine 0-1 /HPF (0-5/HPF); Urine Volume 10mL (spun); WBC Urine 1-5/HPF (0-5/HPF)
== END 2023-08-08 13:31 | disposition home or self-care (01) ==
PROVIDERS: Emergency Provider Emergency Medicine; PCP Registered Nurse Diabetes Educator
DX: R10.33 Periumbilical pain (principal)
CPT/HCPCS: 36415; 80053; 81003; 81015; 82962; 83690; 85025; 93005; 93010; 99284

== ENCOUNTER 2023-10-08 10:36 | Emergency (ER) | payer OTHER, MEDICAID, SELFPAY ==
[2023-10-08 10:40] VITALS: BP 143/95; PULSE 89; RESP 18; TEMP 36.6; O2SAT 97; BMI 26.4
--- NOTE | 2023-10-08 12:51 | ED_ITS ---
HPI - Abdominal Pain <Cesario Hurtado PA-C - Last Filed: 10/08/23 13:04> General Chief Complaint: Abdominal Pain Stated Complaint: acid stomach issues per pt Time Seen by Provider: 10/08/23 12:48 Source: patient Mode of arrival: Ambulatory History of Present Illness HPI narrative: This is a 58-year-old male presents emergency department due to continued GERD like symptoms. He reports a increase in the acid reflux he was experiencing after he eats. He denies any significant abdominal pain, fevers. He states that the pantoprazole previously prescribed during an ER visit 2 months ago helped improve symptoms, he saw his primary care doctor about a month ago where they doubled the dose of the Protonix which helped to control the acid feeling but states that he is still ?burping? as willingness to having some diarrhea for the last couple of days. Denies any blood in the stool. Requesting a different medications he states that it has not working?. Patient is set to be seen by [facility] in approximately 1 month for an endoscopy. Related Data Previous Rx's Medication Instructions Recorded benazepril 10 mg tablet 10 mg PO QDAY #90 tabs 12/03/15 [Lancets] #100 ea 07/08/22 [Test Strips] #100 ea 07/08/22 metformin 500 mg tablet,extended 1,000 mg (2 x 500 mg) PO BID #360 07/08/22 release 24 hr tabs Pen Tecumseh #100 ea 07/16/23 insulin glargine 100 unit/mL (3 22 unit (0.22 mL) SUBCUT QPM #15 mL 07/16/23 mL) subcutaneous pen (Lantus Solostar U-100 Insulin) atorvastatin 20 mg tablet 20 mg PO BEDTIME #90 tabs 09/14/23 dulaglutide 0.75 mg/0.5 mL 0.75 mg (0.5 mL) SUBCUT QWEEK #2 mL 09/14/23 subcutaneous pen injector (Trulicity) dulaglutide 1.5 mg/0.5 mL 1.5 mg (0.5 mL) SUBCUT QWEEK #2 mL 09/14/23 subcutaneous pen injector (Trulicity) dulaglutide 3 mg/0.5 mL 3 mg (0.5 mL) SUBCUT QWEEK #2 mL 09/14/23 subcutaneous pen injector (Trulicity) omeprazole 20 mg capsule,delayed 20 mg PO BID #60 caps 09/14/23 release famotidine 40 mg tablet 40 mg PO DAILY #30 tabs 10/08/23 Allergies Allergy/AdvReac Type Severity Reaction Status Date / Time exenatide [From Bydureon] AdvReac Mild Abdominal Verified 09/17/23 15:45 Pain insulin glargine AdvReac Mild Muscle Pain Verified 09/14/23 08:50 [From Basaglar Koko U-100 Insulin] semaglutide AdvReac Mild Abdominal Verified 09/17/23 15:44 Pain Review of Systems <Cesario Hurtado PA-C - Last Filed: 10/08/23 13:04> Review of Systems Narrative: GENERAL: Denies chills, fatigue, malaise, fever, sweats. HEENT: Denies sinus pain, ear pain, sore throat, difficulty swallowing, dizziness. RESPIRATORY: Denies dyspnea, cough, wheezing, hemoptysis, sputum. CARDIOVASCULAR: Denies chest pain, palpitations, orthopnea, edema, GASTROINTESTINAL: Reports acid reflux, diarrhea Denies nausea, vomiting, abdominal pain, , constipation, melena. : Denies dysuria, frequency, incontinence, hematuria, urinary retention. MUSCULOSKELETAL: denies weakness, joint pain, or bony pain SKIN: Denies rash, skin lesions, or other NEUROLOGIC: Denies weakness, headache, numbness, change in speech, confusion, seizures, incoordination. PSYCHIATRIC: No concerning psychosocial issues. 12 point review of systems is negative except for those stated above Patient History <Cesario Hurtado PA-C - Last Filed: 10/08/23 13:04> Medical History (Updated 10/08/23 @ 13:04 by Cesario Hurtado PA-C) Microalbuminuria Dyslipidemia Poor compliance with medication Leukocytosis RLS (restless legs syndrome) COPD (chronic obstructive pulmonary disease) History of incision and drainage (07/25/15) Recurrent boils Renal insufficiency (04/04/14) Hyperlipidemia (07/19/12) Asthma Diabetes mellitus type 2, insulin dependent (2010) Hypertension Family History Father Respiratory failure Smoker Mother No problems noted. Brother Colon cancer Sister Type 1 diabetes Down syndrome Sister No problems noted. Sister No problems noted. Social History Smoking Status: Current every day smoker Tobacco: How many years used: 24 quit status: not considering quitting second hand exposure: Yes (everybody in my family smokes. ) alcohol intake: former substance use type: marijuana Smoking Status: Current every day smoker tobacco type: cigarettes alcohol intake frequency: 0-2 drinks per day Substance Use Type: marijuana Exam <Cesario Hurtado PA-C - Last Filed: 10/08/23 13:04> Narrative Exam Narrative: GENERAL: Well-developed patient, in mild distress. HEAD: Atraumatic. Normocephalic. EYES: Pupils equal round and reactive. Extraocular motions intact. No scleral icterus. No injection or drainage. ENT: Nose without bleeding, purulent drainage. Throat without erythema, tonsillar hypertrophy or exudate. Airway patent. NECK: Trachea midline. Non tender EXTREMITIES: No edema or joint tenderness. NEURO: AOx3. SKIN: No rash or erythema of visible areas Abdomen: No tenderness to palpation Initial Vital Signs Initial Vital Signs: Vital Signs Temperature 97.8 F 10/08/23 10:40 Pulse Rate 89 10/08/23 10:40 Respiratory Rate 18 10/08/23 10:40 Blood Pressure 143/95 H 10/08/23 10:40 Pulse Oximetry 97 10/08/23 10:40 Oxygen Delivery Method Room Air 10/08/23 10:40 <Janeth Conley DO - Last Filed: 10/08/23 18:52> Initial Vital Signs Initial Vital Signs: Vital Signs Temperature 97.8 F 10/08/23 10:40 Pulse Rate 89 10/08/23 10:40 Respiratory Rate 18 10/08/23 10:40 Blood Pressure 143/95 H 10/08/23 10:40 Pulse Oximetry 97 10/08/23 10:40 Oxygen Delivery Method Room Air 10/08/23 10:40 Course <LATASHA Estrada Last Filed: 10/08/23 13:04> Vital Signs Vital signs: Vital Signs - 8 hr 10/08/23 13:22 Pulse Rate 84 Respiratory Rate 18 Blood Pressure 118/72 Pulse Oximetry 99 Oxygen Delivery Method Room Air <Janeth Conley DO - Last Filed: 10/08/23 18:52> Vital Signs Vital signs: Vital Signs - 8 hr 10/08/23 13:22 Pulse Rate 84 Respiratory Rate 18 Blood Pressure 118/72 Pulse Oximetry 99 Oxygen Delivery Method Room Air MDM - Abdominal Pain <Cesario Hurtado PA-C - Last Filed: 10/08/23 13:04> [facility] Narrative Medical decision making narrative: ED course: This is a 58-year-old male presents to the emergency department due to continued acid reflux like symptoms. He states that the previous PPI that was prescribed for him did help to control symptoms but he was ran out medications has not been taking the 4 days and reporting some GERD like symptoms. Denies any chest pain, shortness of breath, very low concern for any kind of cardiac pathology. Lab work taken during his last visit showed no signs of pancreatitis or other abnormalities. We will attempt a H2 receptor antagonist to prescribe a different class of medication to help with the symptoms. Recommended he does follow up with GI for the endoscopy for more definitive management and care. CC: Acid reflux Complicating co-morbidities: Type 2 diabetes Data collected from: Previous notes Medical records reviewed: Patient was seen 2 months ago due to. Umbilical abdominal pain. Had a nontender abdomen. No prior abdominal surgeries. Has had an upper GI endoscopy in the past through [facility] and no report was able to be located. History of COPD, type 2 diabetes, hypertension,. Lab work was unremarkable. Patient was prescribed Protonix and recommended follow up with GI. Differential considered, but not limited to: Acid reflux, ACS, pancreatitis, hiatal hernia Exam documented above, pertinent findings include: No tenderness palpation to the abdomen Lab Test results independently reviewed as above. Pertinent findings: None obtained Imaging studies independently reviewed: None obtained Scores Used: None MIPS Elements: None Consultations: None Treatments: None Re-evaluations: None Discussion: Discussed plan with the patient was comfortable with the plan Diagnosis: GERD Disposition: see below, along with detailed discharge instructions that have been reviewed with patient as well as indications for ED re-evaluation and additional outpatient follow up Discharge Plan Departure Patient Disposition: Home Clinical Impression: Gastroesophageal reflux disease Instructions: DI for Dyspepsia Activity Restrictions/Additional Instructions: Thank you for coming to the [facility] Emergency Department today. As we discussed we will attempt a different class of medications to help with your GERD like symptoms. Please take as prescribed. Please follow up with the primary care provider for alterations in his medication if needed. Please also follow up with GI as [facility] for possible endoscopy to find the definitive cause and treatment for your symptoms. Please return to the emergency department if you develop any significant chest pain, vomiting, or any other concerning signs or symptoms. I hope you feel better soon. Please follow up with your primary care provider within a week if your symptoms continue. If you do not have a primary care provider please contact the [facility] Resource line at [phone]. They will ask some questions about your medical history and help you get set up with a provider in the community. Prescriptions: New famotidine 40 mg tablet 40 mg PO DAILY Qty: 30 0RF No Action metformin 500 mg tablet extended release 24 hr 1,000 mg PO BID Qty: 360 1RF (DME) [Lancets] See Rx Instructions .Route .MEDSUPPLY Qty: 100 3RF Rx Instructions: check blood sugar three times a day (DME) [Test Strips] See Rx Instructions .Route .MEDSUPPLY Qty: 100 3RF Rx Instructions: check blood sugar three times a day insulin glargine [Lantus Solostar U-100 Insulin] 100 unit/mL (3 mL) insulin pen 22 unit SUBCUT QPM Qty: 15 3RF (DME) Pen Tecumseh 12.7 mm 0 .Route .MEDSUPPLY Qty: 100 6RF Dose Instruction: As directed Rx Instructions: As directed, to be used once daily & once weekly for a total of 8 pen needles per week B-D Pen Needle 12.7 mm Original BD omeprazole 20 mg capsule,delayed release(DR/EC) 20 mg PO BID Qty: 60 1RF Trulicity 0.75 mg/0.5 mL pen injector 0.75 mg SUBCUT QWEEK Qty: 2 0RF Trulicity 1.5 mg/0.5 mL pen injector 1.5 mg SUBCUT QWEEK Qty: 2 1RF Rx Instructions: Take this after completing 0.75 mg dose pens Trulicity 3 mg/0.5 mL pen injector 3 mg SUBCUT QWEEK Qty: 2 1RF Rx Instructions: Take this after completing 1.5mg dose pens. benazepril 10 mg tablet 10 mg PO QDAY Qty: 90 3RF atorvastatin 20 mg tablet 20 mg PO BEDTIME Qty: 90 3RF Referrals: Lenin,Red, SPINDLE CARVER [Primary Care Provider] - Stand Alone Forms: Patient Portal/API ED Sign-out <Janeth Conley DO - Last Filed: 10/08/23 18:52> Cosign ED Attending Cosignature Attestation: I was immediately available in the department for consultation.
[2023-10-08 13:22] VITALS: BP 118/72; PULSE 84; RESP 18; O2SAT 99
== END 2023-10-08 13:22 | disposition home or self-care (01) ==
PROVIDERS: Emergency Provider Physician Assistant Medical; PCP Registered Nurse Diabetes Educator
DX: K21.9 Gastro-esophageal reflux disease without esophagitis (principal)
CPT/HCPCS: 99281; 99283

== ENCOUNTER → 2023-11-04 11:39 | Outpatient (CLI) | payer OTHER, MEDICAID, SELFPAY ==
[2023-11-04 12:39] LABS: Hemoglobin A1C% w Est Avg Glu 9.3 % (4.0-6.0)
== END ==
LOC: LAB 11:41
PROVIDERS: PCP Nurse Practitioner Family; Referring Provider Nurse Practitioner Family; Visit Provider Nurse Practitioner Family
DX: E11.65 Type 2 diabetes mellitus with hyperglycemia (principal)
CPT/HCPCS: 36415; 83036

== ENCOUNTER → 2024-01-01 09:45 | Outpatient (CLI) | payer OTHER, MEDICAID, SELFPAY ==
--- NOTE | 2024-02-04 10:19 | DIAB.MNT ---
Initial Diabetes Medical Nutrition Therapy Assessment Name: David Sainz Date: 01/01/24 Time: 4785-1010t Dx: Type II Diabetes Preferred learning style: Watching Trell presents for initial DM visit. Completed Dm education when first diagnosed. Reports dx with T2 in 2010. States he feels very overwhelmed by diabetes, namely Dm combined with gastroparesis. D/c'd Metformin ER 500mg due to soreness and GI upset. Also, not consistent with insulin. States he feels fatigue with taking insulin. Interested in CGM. PMH of reported slow digestion, indigestion, emesis, diarrhea, bloating. Eats 1-2x per day to reduce GI symptoms. May skip eating all together for 2-3 days per week. Current daily smoker, 1 pack per day. Diet Recall: -: waffles x 2 with syrup or jelly, sausage x 2, eggs 5p: tacos x 4, cheese veg, beef water, diet mt dew Anthropometrics: Ht: 68 Wt: 184# Weight history: 331# in 2010 at diagnosis. Personal goal of 160#. Physical Activity: walks daily x 10-15 mins. Self-Monitoring Blood Glucose: Checking 2-3x per month, random times or FB-330 mg/dl Diabetes Medications: 15u BID glargine (not taking consistently) Pertinent Labs: HgA1c: 12.3% or 11.4% 07/2023 9.3% 10/2023 Past Medical History: (Last Updated 12/12/23 @ 08:07 by PAULINE Cash) Asthma COPD (chronic obstructive pulmonary disease) Diabetes mellitus type 2, insulin dependent (2010) Dyslipidemia History of incision and drainage (07/25/15) Left flank mass, in office - Dr. Christianson Hyperlipidemia (07/19/12) Hypertension Leukocytosis Microalbuminuria Poor compliance with medication Recurrent boils Renal insufficiency (04/04/14) RLS (restless legs syndrome) Uncontrolled diabetes mellitus type 2 without complications Nutrition Rx: Carbohydrates: Meal:45g Snack: 15-30g Nutrition Diagnosis: - Nutrition and food related knowledge deficit r/t needing MNT review for DM and gastroparesis aeb pt report and elevated hgA1c and BG. - Self monitoring deficit r/t stage of change contemplative/preparation aeb pt report Intervention: This participant was very receptive. Provided appropriate educational handouts. Discussed the following topics: Completed intake assessment. Discussed barriers to care. Pathophysiology of T2DM HgA1c, its correlation to blood glucose numbers, and rationale for goal Importance of self-monitoring, how often, and when to check. Suggested checking at different times to evaluate meals Plate Method, impact of macronutrients on blood sugar, meal timing, carbohydrate counting, pairing macronutrients and spreading out carbohydrates for better blood glucose management Recommended servings for carbohydrates at meals and snacks MNT for gastroparesis: soft/liquid meals or snacks CGM sample Reviewed CGM use and equipment Discussed when to check blood sugars using finger stick Reviewed high and low blood sugar signs/symptoms and treatment options Provided education for self-administration of CGM placement Educated patient on alarm settings Discussed how to remove and dispose of equipment Created SMART goals for patient self-care and success. Goals: Start insulin as rx'd Wear CGM x 10.5 days Keep food journal with GI symptoms Follow-up: VINCE FERNANDEZ follow-up in 2-3 weeks Dunia Ellis RDN, REBECCA Certified Diabetes Care and Steam Pipe Fitter P: [phone] Thank you for this referral
== END ==
PROVIDERS: PCP Nurse Practitioner Family; Referring Provider Nurse Practitioner Family
DX: E11.9 Type 2 diabetes mellitus without complications (principal); Z71.3 Dietary counseling and surveillance; Z79.4 Long term (current) use of insulin; Z79.84 Long term (current) use of oral hypoglycemic drugs
CPT/HCPCS: 97802

== ENCOUNTER → 2024-01-15 08:42 | Outpatient (CLI) | payer OTHER, MEDICAID, SELFPAY ==
--- NOTE | 2024-02-04 10:35 | DIAB.MNTFU ---
Follow-up Diabetes Medical Nutrition Therapy Assessment Name: David Sainz Date: 01/15/24 Time: 801g Dx: Type II Diabetes Trell presents for follow-up DM visit. Reports restarting insulin regularly now. Taking once per day vs BID, 30u HS. Endorses continued fatigue. Sees GI 01/20. Jan PCP visit. . Emesis 2x per week over the last 6 months. Enjoyed CGM, however insurance will not cover at this time (due to needing TID injections per [facility] insurance). Has been keeping track of food intake. Some large portions, which would exacerbate gastroparesis by elevated BG and discomfort thereafter. Continues to eat 1-2 x per day. Continued upset GI and indigestion. Anthropometrics: Ht: 68 Wt: 184# Weight history: 331# in 2010 at diagnosis. Personal goal of 160#. Physical Activity: walks daily x 10-15 mins around noon. Considering two walks per day. Self-Monitoring Blood Glucose: Time in range above goal of 70%. Frequent elevations usually after meals for extended time, which may be r/t large portions and gastroparesis. TIR: 13% very high 38% high 49% in range 0% low avg B mg/dl std dev: 51 mg/dl variation: 26.7% Diabetes Medications: 15u BID glargine (taking 30u HS) Pertinent Labs: HgA1c: 12.3% or 11.4% 07/2023 9.3% 10/2023 Past Medical History: (Last Updated 12/12/23 @ 08:07 by PAULINE Cash) Asthma COPD (chronic obstructive pulmonary disease) Diabetes mellitus type 2, insulin dependent (2010) Dyslipidemia History of incision and drainage (07/25/15) Left flank mass, in office - Dr. Christianson Hyperlipidemia (07/19/12) Hypertension Leukocytosis Microalbuminuria Poor compliance with medication Recurrent boils Renal insufficiency (04/04/14) RLS (restless legs syndrome) Uncontrolled diabetes mellitus type 2 without complications Nutrition Rx: Carbohydrates: Meal:45g Snack: 15-30g Nutrition Diagnosis: - Nutrition and food related knowledge deficit r/t needing MNT review for DM and gastroparesis aeb pt report and elevated hgA1c and BG.- improved/in progress - Self monitoring deficit r/t stage of change contemplative/preparation aeb pt report - improved Intervention: This participant was very receptive. Provided appropriate educational handouts. Discussed the following topics: Completed intake assessment. Discussed barriers to care. hyperglycemia and fatigue Gastroparesis impact on hyperglycemia and reason for liquid meals SMBG recs and CGM review Carb portions and impact on BG Created SMART goals for patient self-care and success. Goals: Start insulin as rx'd- met Wear CGM x 10.5 days- met Keep food journal with GI symptoms- met Try shakes at dinner- new group cio oral nutrition supplement (ensure/boost) Try to spread intake out through the day- new Check FBG- new Follow-up: VINCE FERNANDEZ follow-up in 3-4 weeks Dunia Ellis RDN, REBECCA Certified Diabetes Care and Access Coordinator P: [phone] Thank you for this referral
== END ==
PROVIDERS: PCP Nurse Practitioner Family; Referring Provider Nurse Practitioner Family
DX: E11.65 Type 2 diabetes mellitus with hyperglycemia (principal); Z71.3 Dietary counseling and surveillance; Z79.4 Long term (current) use of insulin
CPT/HCPCS: 97803

== ENCOUNTER → 2024-01-29 09:15 | Outpatient (CLI) | payer OTHER, MEDICAID, SELFPAY ==
[2024-01-29 10:37] LABS: Add Manual Diff / Slide Review NO; Basophils Absolute Auto 100 /uL (0-100); Basophils Percent Auto 0.4 % (0-2); Eosinophils Absolute Auto 300 /uL (0-450); Hemoglobin 14.5 g/dL (13.5-17.5); Lymphocytes Absolute Auto 3500 /uL (1100-4500); Lymphocytes Percent Auto 29.6 % (25-40); Mean Corpuscular HGB Conc 33.7 % (30-36); Mean Corpuscular Hemoglobin 28.3 PG (26-34); Monocytes Absolute Auto 900 /uL (0-900); Monocytes Percent Auto 7.6 % (3-14); Neutrophils Absolute Auto 6900 /uL (1500-7000); Neutrophils Percent Auto 59.4 % (50-75); Platelet Count 316 X10^3/uL (150-400); Red Blood Cell Count 5.11 X10^6/uL (4.5-5.9); Red Cell Distribution Width 15.1 % (11.6-14.8); White Blood Cell Count 11.7 X10^3/uL (4.5-11.0)
[2024-01-29 10:43] LABS: Creatinine Urine Random 67.99 mg/dL
[2024-01-29 10:51] LABS: Hemoglobin A1C% w Est Avg Glu 8.2 % (4.0-6.0)
[2024-01-29 11:00] LABS: Alanine Aminotransferase 24 IU/L (<50); Alkaline Phosphatase 96 U/L (38-126); Aspartate Aminotransferase 26 IU/L (17-59); BUN Creatinine Ratio 25.6 (6-22); Bilirubin Total 0.5 mg/dL (0.2-1.3); Blood Urea Nitrogen 32 mg/dL (9-20); Calcium 9.7 mg/dL (8.4-10.2); Carbon Dioxide 25 mmol/L (22-32); Chloride 107 mmol/L (98-107); Cholesterol 143 mg/dL (140-199); Estimated Glomerular Filt Rate > 60 mL/min (>60); Globulin 2.9 g/dL (1.7-4.1); Glucose 133 mg/dL (70-100); HDL Cholesterol 32 mg/dL (40-60); HEMOLYSIS < 15 (0-50); LDL Cholesterol Calculated 64 mg/dL (<100); Potassium 4.4 mmol/L (3.4-5.1); Sodium 137 mmol/L (137-145); Total Protein 5.9 g/dL (6.3-8.2); Triglycerides 234 mg/dL (35-150)
[2024-01-29 17:00] LABS: Microalbumin Urine Random > 285.0 mg/dL (0-1.6)
== END ==
PROVIDERS: PCP Nurse Practitioner Family; Referring Provider Registered Nurse Diabetes Educator; Visit Provider Registered Nurse Diabetes Educator
DX: I10 Essential (primary) hypertension (principal); E78.5 Hyperlipidemia, unspecified; E11.65 Type 2 diabetes mellitus with hyperglycemia; R80.9 Proteinuria, unspecified
CPT/HCPCS: 36415; 80053; 80061; 82043; 82570; 83036; 85025

== ENCOUNTER → 2024-02-03 13:48 | Outpatient (CLI) | payer OTHER, MEDICAID, SELFPAY ==
--- NOTE | 2024-02-04 10:47 | DIAB.MNTFU ---
Follow-up Diabetes Medical Nutrition Therapy Assessment Name: David Sainz Date: 02/03/24 Time: 2-240p Dx: Type II Diabetes Trell presents for follow-up DM visit. Reports improved emesis, down from 2x per week to 1x in the last month. Continues to have gas, diarrhea, and bloat. Gets EGD on 02/16. States he tried ONS (ensure) but this was cost prohibitive. Wants to try coupons and perhaps a cheese blender. Diet recall: 10a: rangel, sausage, cheese, egg burritos 2p: soup or sandwich 5-6p: spaghetti or shake Now eating 2-3x per day, improved. Anthropometrics: Ht: 68 Wt: 184# Weight history: 331# in 2010 at diagnosis. Personal goal of 160#. Physical Activity: walks daily x 10-15 mins around noon. Considering two walks per day. Self-Monitoring Blood Glucose: Checking FBG, which has improved from 200s. Date FBG 01/27 159 01/28 141 01/29 156 01/30 172 01/31 124 02/01 154 02/02 103 Last visit TIR: 13% very high 38% high 49% in range 0% low avg B mg/dl std dev: 51 mg/dl variation: 26.7% Diabetes Medications: 15u BID glargine (taking 30u HS) Pertinent Labs: HgA1c: 12.3% or 11.4% 07/2023 9.3% 10/2023 Past Medical History: (Last Updated 12/12/23 @ 08:07 by PAULINE Cash) Asthma COPD (chronic obstructive pulmonary disease) Diabetes mellitus type 2, insulin dependent (2010) Dyslipidemia History of incision and drainage (07/25/15) Left flank mass, in office - Dr. Christianson Hyperlipidemia (07/19/12) Hypertension Leukocytosis Microalbuminuria Poor compliance with medication Recurrent boils Renal insufficiency (04/04/14) RLS (restless legs syndrome) Uncontrolled diabetes mellitus type 2 without complications Nutrition Rx: Carbohydrates: Meal:30-45g Snack: 15-30g Nutrition Diagnosis: - Nutrition and food related knowledge deficit r/t needing MNT review for DM and gastroparesis aeb pt report and elevated hgA1c and BG.- improved/in progress - Self monitoring deficit r/t stage of change contemplative/preparation aeb pt report - improved Intervention: This participant was very receptive. Provided appropriate educational handouts. Discussed the following topics: Brainstormed and reviewed lower cost ONS Discussed potential for cheese blender, BG friendly ideas for smoothies Insulin dose review and FBG Nutrition recs for ONS: CHO 30g ; PRO 15-30g Provided ONS coupons Label reading review Created SMART goals for patient self-care and success. 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
== END ==
PROVIDERS: Family Provider Nurse Practitioner Family; PCP Nurse Practitioner Family; Referring Provider Nurse Practitioner Family
DX: E11.65 Type 2 diabetes mellitus with hyperglycemia (principal); Z71.3 Dietary counseling and surveillance; Z79.4 Long term (current) use of insulin
CPT/HCPCS: 97803

== ENCOUNTER → 2024-02-24 08:54 | Outpatient (CLI) | payer OTHER, MEDICAID, SELFPAY ==
--- NOTE | 2024-02-24 09:56 | DIAB.MNTFU ---
Follow-up Diabetes Medical Nutrition Therapy Assessment Name: David Sainz Date: 02/24/24 Time: Dx: Type II Diabetes Trell presents for follow-up DM visit. Improved hgA1c, now <9%. Hoping for continued improvement at next lab, <7%. Decided not to get a licensing registration examiner due to living in a mobile home and limited room for equipment and frozen foods. Daughter helped him purchase ONS at [employer], making ensure affordable for him. Has been replacing dinner with this supplement. Still eating some high fat options early in the day. FBG much improved with 32u HS insulin. No postprandial readings to review. Still endorses fatigue and GI symptoms of diarrhea, nausea, gas and bloat. No report of emesis. Stays away from tomato based foods, especially spaghetti now. Also avoids bread and chili due to upset GI. Completed EGD and colonoscopy per report. Per PCP notes, confirmed gastroparesis. Pt states they gave him a medication to help with slow motility, however it was expensive and he only took it for a limited time, reglan? States having just liquids for meals often does help with GI. Diet recall: 10a: rangel, sausage, cheese, egg burritos OR biscuits and gravy 2p: soup or burrito 5-6p: ensure vanilla Reports difficulty with enjoying foods due to needing dentures, and current pair do not fit properly. Not interested in trying to quit smoking. States he likes smoking and has tried in the past. Anthropometrics: Ht: 68 Wt: 182# (down 2# last PCP visit) Weight history: 331# in 2010 at diagnosis. Personal goal of 160#. Physical Activity: walks daily x 10-15 mins around noon. Considering two walks per day. Self-Monitoring Blood Glucose: Checking FBG, which has improved from last visit. Last visit all FBG but one were >130mg/dl. Today only 2 elevations over the last week. Previous CGM data suggested elevations postprandial. No pc readings for review today. Today: Date FBG 02/17 133 1011 144 02/19 121 02/20 112 02/21 117 02/22 103 02/23 148 Last visit: Date FBG 01/27 159 01/28 141 01/29 156 01/30 172 01/31 124 02/01 154 02/02 103 Diabetes Medications: 32u Glargine HS Pertinent Labs: HgA1c: 12.3% or 11.4% 07/2023 9.3% 10/2023 8.2% 01/2024 Past Medical History: (Last Updated 12/12/23 @ 08:07 by PAULINE Cash) Asthma COPD (chronic obstructive pulmonary disease) Diabetes mellitus type 2, insulin dependent (2010) Dyslipidemia History of incision and drainage (07/25/15) Left flank mass, in office - Dr. Christianson Hyperlipidemia (07/19/12) Hypertension Leukocytosis Microalbuminuria Poor compliance with medication Recurrent boils Renal insufficiency (04/04/14) RLS (restless legs syndrome) Uncontrolled diabetes mellitus type 2 without complications Nutrition Rx: Carbohydrates: Meal:30-45g Snack: 15-30g Nutrition Diagnosis: - Nutrition and food related knowledge deficit r/t needing MNT review for DM and gastroparesis aeb pt report and elevated hgA1c and BG.- improved/in progress - Excessive fat intake r/t stage of change in food choices and needing lower fat intake for gatroparesis mnt aeb diet recall and notes indicating diagnosis- new Intervention: This participant was very receptive. Provided appropriate educational handouts. Discussed the following topics: Reviewed impact of high fat food choices on gatstroparesis Discussed eating experience without teeth and some potential resources for affordable dentures Reviewed benefits and potential for smoking cessation Encouraged liquid foods to help with gut motility Discussed potential for medication to help with motility, reglan? BG review and improved impact on health Checking some pc readings for review Created SMART goals for patient self-care and success. Goals: Get a licensing registration examiner- d/c Try lower cost ONS- d/c Try 32 u insulin HS- met Try a couple days of liquid meals only- new Check a few pc readings- new Check out [facility] for dental care- new Follow-up: VINCE FERNANDEZ follow-up in 2-3 weeks Dunia Ellis RDN, REBECCA Certified Diabetes Care and Corporate Account Executive P: [phone] Thank you for this referral
== END ==
PROVIDERS: Family Provider Nurse Practitioner Family; PCP Nurse Practitioner Family; Referring Provider Nurse Practitioner Family
DX: E11.65 Type 2 diabetes mellitus with hyperglycemia (principal); Z79.4 Long term (current) use of insulin; Z71.3 Dietary counseling and surveillance
CPT/HCPCS: 97803

== ENCOUNTER → 2024-03-07 10:45 | Outpatient (CLI) | payer OTHER, MEDICAID, SELFPAY ==
[2024-03-07 11:51] LABS: Add Manual Diff / Slide Review NO; Basophils Absolute Auto 100 /uL (0-100); Eosinophils Absolute Auto 300 /uL (0-450); Eosinophils Percent Auto 2.7 % (2-4); Hematocrit 43.5 % (41-53); Hemoglobin 14.6 g/dL (13.5-17.5); Lymphocytes Absolute Auto 3300 /uL (1100-4500); Lymphocytes Percent Auto 30.1 % (25-40); Mean Corpuscular HGB Conc 33.5 % (30-36); Mean Corpuscular Hemoglobin 28.5 PG (26-34); Mean Corpuscular Volume 85.1 fL (80-100); Monocytes Absolute Auto 1000 /uL (0-900); Neutrophils Absolute Auto 6400 /uL (1500-7000); Neutrophils Percent Auto 57.2 % (50-75); Platelet Count 280 X10^3/uL (150-400); Red Blood Cell Count 5.12 X10^6/uL (4.5-5.9); Red Cell Distribution Width 14.9 % (11.6-14.8); White Blood Cell Count 11.1 X10^3/uL (4.5-11.0)
[2024-03-07 12:17] LABS: Hemoglobin A1C% w Est Avg Glu 7.7 % (4.0-6.0)
[2024-03-07 12:35] LABS: Alanine Aminotransferase 22 IU/L (<50); Albumin 3.1 g/dL (3.5-5.0); Albumin Globulin Ratio 1.1 (1.0-2.8); Alkaline Phosphatase 115 U/L (38-126); Aspartate Aminotransferase 24 IU/L (17-59); BUN Creatinine Ratio 21.9 (6-22); Bilirubin Total 0.4 mg/dL (0.2-1.3); Blood Urea Nitrogen 34 mg/dL (9-20); C-Reactive Protein Quant 0.5 mg/dL (<1.0); Calcium 9.6 mg/dL (8.4-10.2); Carbon Dioxide 24 mmol/L (22-32); Chloride 108 mmol/L (98-107); Estimated Glomerular Filt Rate 52 mL/min (>60); Globulin 2.7 g/dL (1.7-4.1); Glucose 178 mg/dL (70-100); HEMOLYSIS < 15 (0-50); Potassium 4.3 mmol/L (3.4-5.1); Sodium 140 mmol/L (137-145); Total Protein 5.8 g/dL (6.3-8.2)
== END ==
PROVIDERS: Family Provider Nurse Practitioner Family; PCP Nurse Practitioner Family; Referring Provider Internal Medicine Gastroenterology; Visit Provider Internal Medicine Gastroenterology
DX: R19.7 Diarrhea, unspecified (principal); E11.65 Type 2 diabetes mellitus with hyperglycemia; I10 Essential (primary) hypertension; E78.5 Hyperlipidemia, unspecified
CPT/HCPCS: 80053; 83036; 85025; 86140

== ENCOUNTER → 2024-03-08 17:24 | Outpatient (CLI) | payer OTHER, MEDICAID, SELFPAY ==
[2024-03-08 22:01] LABS: Adenovirus F 40/41 Not Detected (Not Detect); Astrovirus Not Detected (Not Detect); Campylobacter Not Detected (Not Detect); Clostridium difficile toxin AB Not Detected (Not Detect); Cryptosporidium Not Detected (Not Detect); Cyclospora cayetanensis Not Detected (Not Detect); Entamoeba histolytica Not Detected (Not Detect); Enteroaggregative E.coli Not Detected (Not Detect); Enteropathogenic E.coli Not Detected (Not Detect); Enterotoxigenic E.coli It/st Not Detected (Not Detect); Giardia lamblia Not Detected (Not Detect); Norovirus GI/GII Not Detected (Not Detect); Plesiomonsa shigelloides Not Detected (Not Detect); Rotavirus A Not Detected (Not Detect); Salmonella Not Detected (Not Detect); Sapovirus Not Detected (Not Detect); Shiga-like toxin-prod E.coli Not Detected (Not Detect); Shigella/Enteroinvasive E.coli Not Detected (Not Detect); Vibrio Not Detected (Not Detect); Vibrio cholerae Not Detected (Not Detect); Yersinia enterocolitica Not Detected (Not Detect)
[2024-03-12 21:36] LABS: Calprotectin, Stool 56 ug/g (0-120)
== END ==
PROVIDERS: Family Provider Nurse Practitioner Family; PCP Nurse Practitioner Family; Referring Provider Internal Medicine Gastroenterology; Visit Provider Internal Medicine Gastroenterology
DX: R19.7 Diarrhea, unspecified (principal)
CPT/HCPCS: 83993; 87329; 87507

== ENCOUNTER → 2024-04-20 10:14 | Outpatient (CLI) | payer OTHER, MEDICAID, SELFPAY ==
[2024-04-20 12:08] LABS: C-Reactive Protein Quant < 0.5 mg/dL (<1.0)
[2024-04-20 12:34] LABS: TSH w/ Reflex to FT4 2.02 uIU/mL (0.47-4.68)
== END ==
PROVIDERS: Family Provider Nurse Practitioner Family; PCP Nurse Practitioner Family; Referring Provider Internal Medicine Gastroenterology; Visit Provider Internal Medicine Gastroenterology
DX: R19.7 Diarrhea, unspecified (principal)
CPT/HCPCS: 36415; 84443; 86140

== ENCOUNTER → 2024-04-21 10:44 | Outpatient (CLI) | payer OTHER, MEDICAID, SELFPAY ==
--- NOTE | 2024-05-25 16:17 | DIAB.FU ---
Follow-up Diabetes Education Assessment Name: David Sainz Date: 04/21/24 Time: Dx: Type II Diabetes Trell presents for follow-up DM visit. Reports continued GI cramping even with ONS. Cramping with eating dairy possibly too. Wanting to try d/c of dairy, but states he has done this before without relief. States there is a GI med that was rx'd to him, but cannot remember the name. labs yesterday for potential gluten allergy per report. Some days he does not want to eat at all due to GI upset, ie diarrhea, cramping. Got a stud setter, daughter bought him for birthday. Does not want to deal with dental at this time. no emesis in over 1 month, which is improvement. Reports difficulty with enjoying foods due to needing dentures, and current pair do not fit properly. Not interested in trying to quit smoking. States he likes smoking and has tried in the past. Anthropometrics: Ht: 68 Wt: 182# (down 2# last PCP visit) Weight history: 331# in 2010 at diagnosis. Personal goal of 160#. Physical Activity: walks daily x 10-15 mins around noon. Self-Monitoring Blood Glucose: Checking FBG, most in range or very close to goal. A few evening readings with most under 180mg/dl. Today: Date FBG 03/24 122 03/25 134 03/26 137 03/27 126 12/ 145 12/ 131 04/15 Last Visit: Date FBG 02/17 133 02/18 144 02/19 121 02/20 112 02/21 117 02/22 103 02/23 148 Diabetes Medications: 32u Glargine HS Pertinent Labs: HgA1c: 12.3% or 11.4% 07/2023 9.3% 10/2023 8.2% 01/2024 7.7% 02/2024 Past Medical History: (Last Updated 12/12/23 @ 08:07 by PAULINE Cash) Asthma COPD (chronic obstructive pulmonary disease) Diabetes mellitus type 2, insulin dependent (2010) Dyslipidemia History of incision and drainage (07/25/15) Left flank mass, in office - Dr. Christianson Hyperlipidemia (07/19/12) Hypertension Leukocytosis Microalbuminuria Poor compliance with medication Recurrent boils Renal insufficiency (04/04/14) RLS (restless legs syndrome) Uncontrolled diabetes mellitus type 2 without complications Nutrition Rx: Carbohydrates: Meal:30-45g Snack: 15-30g Nutrition Diagnosis: - Nutrition and food related knowledge deficit r/t needing MNT review for DM and gastroparesis aeb pt report and elevated hgA1c and BG.- improved/in progress - Excessive fat intake r/t stage of change in food choices and needing lower fat intake for gatroparesis mnt aeb diet recall and notes indicating diagnosis- in progress Intervention: This participant was very receptive. Provided appropriate educational handouts. Discussed the following topics: Brainstormed smoothie ideas ADA BG goals for FBG and pc Review of readings and when to check GI symptoms and potential allergy exacerbating Created SMART goals for patient self-care and success. Goals: Try a couple days of liquid meals only- met Check a few pc readings- met Check out [facility] for dental care- d/c Try smoothies- new Check a few pc readings- new write down GI medication name- new Follow-up: VINCE FERNANDEZ follow-up in 3-4 weeks Dunia Ellis RDN, REBECCA Certified Diabetes Care and Clinical Professor P: [phone] Thank you for this referral
== END ==
PROVIDERS: Family Provider Nurse Practitioner Family; PCP Nurse Practitioner Family; Referring Provider Nurse Practitioner Family
DX: E11.65 Type 2 diabetes mellitus with hyperglycemia (principal); Z71.3 Dietary counseling and surveillance; Z79.4 Long term (current) use of insulin
CPT/HCPCS: 97803

== ENCOUNTER → 2024-05-25 12:50 | Outpatient (CLI) | payer OTHER, SELFPAY ==
--- NOTE | 2024-06-24 16:40 | DIAB.MNTFU ---
Follow-up Diabetes Medical Nutrition Therapy Assessment Name: David Sainz Date: 05/25/24 Time: 1-2p Dx: Type II Diabetes Trell presents for follow-up DM visit. States he is taking the GI medication, Levsin, but reports it is doing nothing to help. Took Antibiotics x 7 days, which did help but since d/c GI symptoms have returned. Getting a breathe test for SIBO REports feeling low BG symptoms at 79-110mg/dl. 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 GI specialist encouraged FODMAP diet but he is unclear on how to to this. Anthropometrics: Ht: 68 Wt: 182# Weight history: 331# in 2010 at diagnosis. Personal goal of 160#. Physical Activity: walks daily x 10-15 mins around noon. Self-Monitoring Blood Glucose: Checking FBG, most in range or very close to goal. HS readings all under 160mg/dl. Today: Date FBG 05/19 118 05/20 146 05/21 134 05/22 117 05/23 136 05/24 119 05/25 130 Last Visit: Date FBG 03/24 122 03/25 134 03/26 137 03/27 126 04/13 145 04/14 131 04/15 Diabetes Medications: 32u Glargine HS Pertinent Labs: HgA1c: 12.3% or 11.4% 07/2023 9.3% 10/2023 8.2% 01/2024 7.7% 02/2024 Past Medical History: (Last Updated 12/12/23 @ 08:07 by PAULINE Cash) Asthma COPD (chronic obstructive pulmonary disease) Diabetes mellitus type 2, insulin dependent (2010) Dyslipidemia History of incision and drainage (07/25/15) Left flank mass, in office - Dr. Christianson Hyperlipidemia (07/19/12) Hypertension Leukocytosis Microalbuminuria Poor compliance with medication Recurrent boils Renal insufficiency (04/04/14) RLS (restless legs syndrome) Uncontrolled diabetes mellitus type 2 without complications Nutrition Rx: Carbohydrates: Meal:30-45g Snack: 15-30g Nutrition Diagnosis: - Nutrition and food related knowledge deficit r/t needing MNT review for DM and gastroparesis aeb pt report and elevated hgA1c and BG.- improved/in progress - Nutrition and food related knowledge deficit r/t needing guidance on FODMAP diet aeb pt report - new Intervention: This participant was very receptive. Provided appropriate educational handouts. Discussed the following topics: BG review and trends BG goals and hgA1c FODMAP process and recs Created SMART goals for patient self-care and success. Goals: Try smoothies- met Check a few pc readings- met write down GI medication name- met Try low FODMAP diet- new Keep food journal with symptoms- new Follow-up: VINCE FERNANDEZ follow-up in 2 weeks Dunia Ellis RDN, [place] Certified Diabetes Care and Radiographer Technologist P: [phone] Thank you for this referral
== END ==
PROVIDERS: Family Provider Nurse Practitioner Family; PCP Nurse Practitioner Family; Referring Provider Nurse Practitioner Family
DX: E11.65 Type 2 diabetes mellitus with hyperglycemia (principal); Z71.3 Dietary counseling and surveillance; Z79.4 Long term (current) use of insulin
CPT/HCPCS: 97803

== ENCOUNTER → 2024-07-27 14:32 | Outpatient (CLI) | payer OTHER, SELFPAY ==
[2024-07-27 15:12] LABS: Add Manual Diff / Slide Review NO; Basophils Absolute Auto 100 /uL (0-100); Basophils Percent Auto 0.5 % (0-2); Eosinophils Absolute Auto 400 /uL (0-450); Eosinophils Percent Auto 3.2 % (2-4); Hemoglobin 14.8 g/dL (13.5-17.5); Lymphocytes Absolute Auto 3700 /uL (1100-4500); Mean Corpuscular Hemoglobin 28.7 PG (26-34); Mean Corpuscular Volume 86.9 fL (80-100); Monocytes Absolute Auto 1000 /uL (0-900); Monocytes Percent Auto 7.4 % (3-14); Neutrophils Absolute Auto 8600 /uL (1500-7000); Neutrophils Percent Auto 61.9 % (50-75); Platelet Count 344 X10^3/uL (150-400); Red Blood Cell Count 5.17 X10^6/uL (4.5-5.9); White Blood Cell Count 13.8 X10^3/uL (4.5-11.0)
[2024-07-27 15:22] LABS: Hemoglobin A1C% w Est Avg Glu 6.5 % (4.0-6.0)
[2024-07-27 15:45] LABS: Alanine Aminotransferase 27 IU/L (<50); Albumin 3.5 g/dL (3.5-5.0); Albumin Globulin Ratio 1.1 (1.0-2.8); Alkaline Phosphatase 89 U/L (38-126); Aspartate Aminotransferase 28 IU/L (17-59); BUN Creatinine Ratio 33.3 (6-22); Bilirubin Total 0.7 mg/dL (0.2-1.3); Blood Urea Nitrogen 62 mg/dL (9-20); Calcium 10.1 mg/dL (8.4-10.2); Carbon Dioxide 12 mmol/L (22-32); Chloride 114 mmol/L (98-107); Cholesterol 266 mg/dL (140-199); Estimated Glomerular Filt Rate 41 mL/min (>60); Globulin 3.2 g/dL (1.7-4.1); Glucose 134 mg/dL (70-100); HDL Cholesterol 33 mg/dL (40-60); HEMOLYSIS < 15 (0-50); LDL Cholesterol Calculated 174 mg/dL (<100); Potassium 5.2 mmol/L (3.4-5.1); Sodium 139 mmol/L (137-145); Total Protein 6.7 g/dL (6.3-8.2); Triglycerides 293 mg/dL (35-150)
[2024-07-27 15:51] LABS: Creatinine Urine Random 107.66 mg/dL
== END ==
PROVIDERS: Family Provider Nurse Practitioner Family; PCP Nurse Practitioner Family; Referring Provider Nurse Practitioner Family; Visit Provider Nurse Practitioner Family
DX: E11.65 Type 2 diabetes mellitus with hyperglycemia (principal); I10 Essential (primary) hypertension
CPT/HCPCS: 36415; 80053; 80061; 82043; 82570; 83036; 85025